=== PATIENT | female | born 1995 | race Caucasian/White ===

== ENCOUNTER → 2018-12-06 | Outpatient (CLI) | payer OTHER ==
--- NOTE | 2018-12-06 13:41 | Diagnostic Imaging Report ---
Limited ultrasound of the head and neck History: Scalp mass above the left ear, headache. Comparison: None. Technique: Limited ultrasound was performed of the left scalp above the tear in the area of clinical concern. Images of the right scalp above the ear were obtained for comparison purposes. Findings/impression: In the area of clinical concern in the left scalp above the ear, there is a well-circumscribed isoechoic lesion measuring up to 0.8 x 0.4 x 0.7 cm. The lesion may be arising from the adjacent bone. The finding is indeterminant by ultrasound, and can be correlated with clinical exam. Signed by: Dr. Carolina Fair MD on 12/06/2018 1:38 PM
--- NOTE | 2018-12-06 13:50 | Diagnostic Imaging Report ---
EXAM: US ABDOMEN COMPLETE INDICATION: Right upper quadrant pain. COMPARISON: None TECHNIQUE: Transverse and longitudinal sarmiento scale and color doppler sonographic images of the upper abdomen were obtained. FINDINGS: LIVER Measures 14.4 cm in the right midclavicular line. Normal echogenicity of the liver with normal contour, no masses. SPLEEN Measures 9.0 cm in maximum diameter. Normal echogenicity, no masses. GALLBLADDER No gallbladder wall thickening, distension, stone, or pericholecystic fluid. Negative reported sonographic Ruelas's sign. BILE DUCTS No intra nor extra-hepatic biliary dilation. Common bile duct measures 0.3 cm PANCREAS: Visualized portions are normal. RIGHT KIDNEY: 11.2 cm Echogenicity: Normal Collecting System: No hydronephrosis Stones: None Cyst/Mass: None LEFT KIDNEY: 10.4 cm Echogenicity: Normal Collecting System: No hydronephrosis Stones: There is a 4 mm left mid pole renal stone. Cyst/Mass: None VESSELS: Aorta: Visualized portions are within normal size limits Inferior Vena Cava: Visualized portions are normal Main Portal Vein: 1.0 cm, normal size with hepatopetal flow. FREE FLUID: None IMPRESSION: No sonographic evidence of cholecystitis or cholelithiasis. Nonobstructing 4 mm left mid pole renal stone. Signed by: Dr. Carolina Fair MD on 12/06/2018 1:47 PM
--- NOTE | 2018-12-06 14:08 | Diagnostic Imaging Report ---
Exam: Pelvic ultrasound with doppler History: History of PCOS, endometriosis. Comparison: None. Findings: Endovaginal sonographic evaluation of the pelvis. Uterus measures 6.8 x 2.9 x 4.6 cm. Endometrial stripe measures 0.5 cm. No evidence of mass lesion. The uterus is mildly heterogeneous in appearance, a nonspecific finding. The right ovary measures 3.4 x 2.1 x 2.3 cm and the left ovary measures 4.1 x 1.6 x 2.6 cm. Doppler flow is demonstrated in bilateral ovaries. There are follicular cysts in bilateral ovaries. Small amount of free fluid, likely physiologic. The bladder is unremarkable in appearance. Impression: No sonographic evidence of ovarian torsion. Nonspecific bilateral ovarian follicular cysts, which are likely physiologic. Signed by: Dr. Carolina Fair MD on 12/06/2018 2:05 PM
== END ==
LOC: US 10:42
PROVIDERS: ATTEND Family Medicine
DX: R10.11 Right upper quadrant pain (principal); R10.9 Unspecified abdominal pain; Z87.42 Personal history of other diseases of the female genital tract; Z87.442 Personal history of urinary calculi
CPT/HCPCS: 76536; 76700; 76830; 76856; 93976